=== PATIENT | female | born 1970 | race Caucasian/White ===

== ENCOUNTER 2018-04-08 11:14 | Emergency (ER) | payer SELFPAY ==
[~2018-04-08] VITALS: Ht 162.6 cm; Wt 63.6 kg
[2018-04-08 11:17] VITALS: BP 185/110
[2018-04-08] MEDS ORDERED: FLUO20SO9 PO (11:22)
[2018-04-08] MEDS ORDERED: VALP250S23 PO (11:22)
== END 2018-04-08 13:30 | disposition left against medical advice (07) ==
LOC: EMS 11:15
DX: I10 Essential (primary) hypertension (principal); R51 Headache; Z53.21 Procedure and treatment not carried out due to patient leaving prior to being seen by health care provider